=== PATIENT | female | born 1955 | race Caucasian/White ===

== ENCOUNTER 2019-02-15 21:55 | Emergency (ER) | payer OTHER ==
[2019-02-16] MEDS ORDERED: FAMOTIDINE 20 MG TAB PO
[2019-02-16] MEDS ORDERED: predniSONE 20 MG TAB PO
== END 2019-02-16 01:51 | disposition home or self-care (01) ==
LOC: FTE 02-16 01:51
DX: L50.0 Allergic urticaria (principal); Z79.84 Long term (current) use of oral hypoglycemic drugs
CPT/HCPCS: 99283; Z7502